=== PATIENT | male | born 1975 | race Caucasian/White ===

== ENCOUNTER 2023-04-16 14:11 | Inpatient (IN) | payer MEDICARE, SELFPAY ==
--- NOTE | ~2023-04-16 | XR_ITS ---
EXAMINATION: XR WRIST, RIGHT CLINICAL INFORMATION: Pain and swelling can right wrist COMPARISON: None available. TECHNIQUE: PA, lateral, and oblique views of the right wrist. FINDINGS: The bones and soft tissues are normal. No fracture. Alignment is anatomic with normal joint spaces. No erosions or abnormal soft tissue calcifications. XR/XR wrist RT min 3V IMPRESSION: Normal right wrist.
[2023-04-16 14:18] VITALS: BP 133/80; BP 162/112; PULSE 74; PULSE 82; RESP 16; TEMP 37.1; O2SAT 96; BMI 33.3
[2023-04-16 14:34] VITALS: RESP 14
[2023-04-16 14:51] LABS: MANUAL DIFF FLAG NO
[2023-04-16 14:54] LABS: Basophils Percent Auto 0.2 % (0-2); Eosinophils Absolute Auto 0.1 X10*3/uL (0.0-0.4); Hematocrit 42.3 % (42.0-52.0); Hemoglobin 13.7 g/dl (14.0-18.0); Imm Gran Abs Auto 0.02 X10*3/uL (0.00-0.03); Imm Gran Pct Auto 0.2 % (0.0-0.4); Mean Corpuscular HGB Conc 32.4 g/dl (31.0-36.0); Mean Corpuscular Hemoglobin 28.9 pg (27.0-33.0); Mean Corpuscular Volume 89.2 fL (80.0-98.0); Mean Platelet Volume 10.1 fL (9.4-12.4); Monocytes Absolute Auto 0.6 X10*3/uL (0.1-1.2); Monocytes Percent Auto 7.5 % (2-11); Neutrophils Absolute Auto 5.6 x10*3/uL (2.0-8.3); Neutrophils Percent Auto 67.1 % (45-73); Platelet Count 209 X10*3/uL (160-400); Red Blood Count 4.74 X10*6/uL (4.60-5.80); Red Cell Distribution Width 13.2 % (11.0-16.0); White Blood Count 8.4 X10*3/uL (4.8-10.8)
[2023-04-16 14:56] LABS: Appearance Urine Clear; Color Urine Yellow; Glucose Urine UA Negative (Negative); Leukocyte Esterase Urine Negative (Negative); Nitrite Urine Negative (Negative); UMIC TRIGGER UACC YES; Urine Blood Negative (Negative); Urine Ketones Negative (Negative); Urine Protein 30 (1+) mg/dL (Neg-Trace)
[2023-04-16 15:01] LABS: Amphetamine Screen Urine Not Detected (Not Detect); Barbiturates, Urine Not Detected (Not Detect); Benzodiazepines Screen Urine Not Detected (Not Detect); Cannabinoid Screen Urine Not Detected (Not Detect); Cocaine Screen Urine Not Detected (Not Detect); Fentanyl, urine Not Detected (Not Detect); Opiate Screen Urine Not Detected (Not Detect); Phencyclidine Screen Urine Not Detected (Not Detect)
[2023-04-16 15:05] LABS: COVID-19 Test Positive (Negative); IDNOW Serial# 08D9AD1C
[2023-04-16 15:09] LABS: Bacteria Urine None Seen (None Seen); Granular Casts Urine Present; RBC Urine 0-2 /HPF (0-2); Squamous Epithelial Cell Urine 0-2 /HPF (0-2); WBC Urine 0-5 /HPF (0-5)
[2023-04-16 15:19] LABS: Alanine Aminotransferase 17 U/L (0-40); Alkaline Phosphatase 68 U/L (39-117); Anion Gap 16 (12-20); Aspartate Amino Transferase 24 U/L (5-37); Bilirubin Total 0.4 mg/dL (0.0-1.0); Blood Urea Nitrogen 10 mg/dL (9-16); Calcium 9.2 mg/dL (8.4-10.2); Carbon Dioxide 25 mmol/L (22-29); Chloride 108 mmol/L (96-108); Creatinine Clr Calc Pharmacy 120.7; Estimated Glomerular Filt Rate > 60; Ethanol < 10 mg/dL; Glucose Random 98 mg/dL (60-115); Potassium 3.7 mmol/L (3.3-5.1); Sodium 145 mmol/L (135-145); Total Protein 7.2 g/dL (6.5-8.0)
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
--- NOTE | 2023-04-16 16:37 | PHA.MEDREC ---
Pharmacy Consult ? Medication Reconciliation Pharmacy has reviewed the medication reconciliation completed by nursing.
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
--- NOTE | 2023-04-16 19:04 | PC.NURSE ---
patient appears to remain at rest at present respirations are even and unlabored patient appears in no distress, requests blankets.
--- NOTE | 2023-04-16 20:33 | PC.NURSE ---
client participates in negative attention seeking behavior when in milieu, speaking in a childlike voice, acting seemingly kendall and victim-like, talking to self in front of door (inside room) for prolonged periods.
[2023-04-16 22:05] VITALS: BP 151/73; PULSE 54; RESP 20; TEMP 36.6; O2SAT 97
--- NOTE | 2023-04-17 00:50 | PC.NURSE ---
patient continues to self dialogue standing inside his room staring out door, some giggling periodically.
[2023-04-17 03:46] VITALS: BP 151/72; PULSE 56; RESP 17; TEMP 36.5; O2SAT 97
--- NOTE | 2023-04-17 08:09 | ECG_ITS ---
Test Reason : CHECK QT INTERVAL Blood Pressure : / mmHG Vent. Rate : 091 BPM Atrial Rate : 091 BPM P-R Int : 132 ms QRS Dur : 096 ms QT Int : 362 ms P-R-T Axes : 053 -09 051 degrees QTc Int : 445 ms Normal sinus rhythm Normal ECG When compared with ECG of 31-JUL-2011 09:43, Vent. rate has increased BY 32 BPM Referred By: Fausto Cam Electronically Signed By:MICHELLE NUNEZ
--- NOTE | 2023-04-17 08:49 | PC.NURSE ---
patient is awake and alert in room, covid + and respecting boundaries with others and masking. patient is calm and cooperative, refused AM medications stating he is 'allergic . patient ate his breakfast entirely. when talking with patient he demonstrates pressured speech. patient is currently standing in front of door which is shut making dancing gestures and hand movements. patient appears to be having internal stimuli and self dialogue. Respirations equal and unlabored, patient skin PWD, has mild flaking of skin around face and hair.
[2023-04-17 09:20] VITALS: BP 156/79; PULSE 70; RESP 20; TEMP 36.8; O2SAT 95
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
--- NOTE | 2023-04-17 10:24 | MHC.CARE ---
CARE Team left VM with [facility] legal for guardianship paperwork
--- NOTE | 2023-04-17 10:57 | MHC.CARE ---
CARE Team spoke with Jane Hammond updated her Pt is currently in the ED and she will send legal paperwork.
--- NOTE | 2023-04-17 12:01 | PC.NURSE ---
patient requesting to speak to staff about how he needs to go upstairs and that being in the pod is cruel and unusual punishment patient states he is cold, was offered warm blanket but denied. patient being intrusive on staff regarding the temperature of the pod, patient educated on how we can not always control the temperature of the unit. patient is sitting in room on bed quietly
--- NOTE | 2023-04-17 12:57 | PC.NURSE ---
REPORT TO SAI ON M3
--- NOTE | 2023-04-17 13:25 | PC.NURSE ---
Patient refused lunch tray, saying he is now vegan/vegetarian. kitchen called and patient is being brought new lunch
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
--- NOTE | 2023-04-17 17:23 | PC.NURSE ---
Pt refused flu vaccine at this time
--- NOTE | 2023-04-17 17:28 | PC.NURSE ---
Pt declined vitals
[2023-04-17] MEDS: risperiDONE 2 MG TABLET PO (22:58)
[2023-04-18 07:00] VITALS: BMI 37.0
[2023-04-18 07:40] VITALS: BP 139/67; PULSE 80; RESP 18; TEMP 36.1; O2SAT 100
[2023-04-18 08:33] LABS: Estimated Average Glucose 94 mg/dL; Hemoglobin A1c % 4.9 % (<6.0)
[2023-04-18 08:53] LABS: Cholesterol 135 mg/dL (<200); HDL Cholesterol 41 mg/dL (>40); LDL Cholesterol Calculated 78 mg/dL (<100); Triglycerides 81 mg/dL (<150)
[2023-04-18] MEDS: risperiDONE 2 MG TABLET PO ×2 (08:57→22:47)
[2023-04-18 09:08] LABS: Free T4 (Free Thyroxine) 0.96 ng/dL (0.71-1.85)
[2023-04-18 09:17] LABS: Vitamin B12 267 pg/mL (200-900)
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
[2023-04-18 20:30] VITALS: BP 123/73; PULSE 69; RESP 18; TEMP 36.3; O2SAT 97
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
[2023-04-19 08:30] VITALS: BP 172/90; PULSE 80; RESP 18; TEMP 36.5; O2SAT 98
[2023-04-19] MEDS: risperiDONE 2 MG TABLET PO ×2 (08:44→20:27)
[2023-04-19] MEDS: hydrOXYzine HCL 25 MG TABLET PO (08:44)
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
--- NOTE | 2023-04-19 13:41 | PC.NURSE ---
pt transferred from and arrived on the unit via wheel chair on a CV @ 1325. Skin check performed and vitals taken. Pt is covid+ and placed in group room b to [facility]. Pt is pleasant, calm,, cooperative utilizing the portable phone.
[2023-04-19 16:30] VITALS: BP 134/74; PULSE 84; TEMP 36.7
[2023-04-20] MEDS: traZODone HCL 50 MG TABLET PO (01:40)
[2023-04-20] MEDS: risperiDONE 2 MG TABLET PO ×2 (08:49→22:01)
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
[2023-04-21] MEDS: Magnesium Hydrox/Alum Hydrox 30 ML ORAL.SUSP PO (05:10)
[2023-04-21 08:25] VITALS: BP 130/62; PULSE 71; RESP 18; TEMP 36.5; O2SAT 97
[2023-04-21] MEDS: risperiDONE 2 MG TABLET PO ×2 (08:39→20:42)
[2023-04-21 17:12] VITALS: BP 135/71; PULSE 92; RESP 16; TEMP 36.6; O2SAT 99
--- NOTE | 2023-04-21 18:27 | HO.PSYCHPN ---
Subjective Subjective Date of Service: 04/21/23 Reason For Visit: Mental health emergency Interim History: Team reports no sleep for pt last night. Pt is in the hallway, interacting with staff and peers, disorganized, talking about his girlfriend cheating on him, making reference to other patients and their feeling impressed with his knowledge base. Discussed plans to move his room tomorrow, long discussion of how he provides self dental care. Tangential with less but intermittent agitation than observed on 04/20. Again discussed Fadi's order and parameters Denies active distress from COVID diagnosis. Medication Compliance: Yes Side effects from medications: No Attending Groups: No Review of Systems Acute medical concerns: No covid+ Medical Review of Systems: unchanged Review of Systems Review of Systems Yes Unobtainable due to mental status Mental Status Exam Mental Status Exam Patient Appearance: Disheveled Patient Orientation: Person and Place Level of Consciousness: Restless and Alert Patient Behavior: Guarded, Fearful and Good Eye Contact Mood Description: Constricted Affect Description: Constricted Patient Cognition Impaired: No Ability to Follow Directions: Fair Speech Pattern: Spontaneous Speech Memory Description: Episodic Impaired Hallucinations: Auditory Delusions: Paranoid Ideation Thought Process: Rumination Thought Content: positive for Circumstantial, positive for Perseveration and positive for Thought Blocking (???) Depressive Symptoms: Increased Irritability and Increased Fatigue Judgement: Poor Diagnostics Vital Signs (24Hr): Vital Signs - 24 hr 04/21/23 08:25 04/21/23 17:12 Temperature 97.7 F 97.9 F Pulse Rate 71 92 Respiratory Rate 18 16 Blood Pressure 130/62 135/71 Pulse Oximetry 97 99 Oxygen Delivery Method Room Air BMI result Body Mass Index 37.0 Labs 04/16/23 14:40 04/16/23 14:40 Imaging Radiology Impressions: ITS Impressions Wrist X-Ray 04/19/23 07:25 IMPRESSION: Normal right wrist. Medications Medications Current Medications Acetaminophen (Acetaminophen 325 Mg Tablet) 650 mg PO Q6H PRN PRN Reason: Headache/Pain Mild Scale (1-3) Al Hydroxide/Mg Hydroxide (Magnesium Hydrox/Alum Hydrox 30 Ml Oral.Susp) 30 ml PO Q6H PRN PRN Reason: Heartburn/Nausea Last Admin: 04/21/23 05:10 Dose: 30 ml Divalproex Sodium (Divalproex Sodium Er 500 Mg Tab.Er.24h) 500 mg PO BEDTIME ARAM Hydroxyzine HCl (Hydroxyzine Hcl 25 Mg Tablet) 25 mg PO Q6H PRN PRN Reason: Anxiety Last Admin: 04/19/23 08:44 Dose: 25 mg Magnesium Hydroxide (Milk Of Magnesia 30 Ml Oral.Susp) 30 ml PO DAILY PRN PRN Reason: Constipation Nicotine Polacrilex (Nicotine Polacrilex 2 Mg Gum) 4 mg BUCCAL Q2H PRN PRN Reason: Nicotine Cravings Risperidone (Risperidone 2 Mg Tablet) 2 mg PO BID ARAM Last Admin: 04/21/23 08:39 Dose: 2 mg Trazodone HCl (Trazodone Hcl 50 Mg Tablet) 50 mg PO BEDTIME MRX1 PRN PRN Reason: Insomnia Last Admin: 04/20/23 01:40 Dose: 50 mg Ziprasidone (Ziprasidone Mesylate 20 Mg Vial) 20 mg IM BID PRN PRN Reason: if refuses PO Risperdal Allergies Allergies Allergy/AdvReac Type Severity Reaction Status Date / Time haloperidol [Haldol] Allergy Intermediate tongue Verified 04/16/23 14:36 swelling Influenza Virus Vaccines Allergy Intermediate Hives Verified 04/16/23 14:42 aripiprazole [Abilify] AdvReac Mild eye rolling Verified 04/16/23 14:36 sertraline [Zoloft] AdvReac Mild eye rolling Verified 04/16/23 14:36 eggs Allergy Intermediate Hives Uncoded 04/16/23 14:44 Assessment & Plan Assessment & Plan (1) Schizophrenia, paranoid type: Status: Acute Code(s): F20.0 - Paranoid schizophrenia Plan restart/continue fadi's order medication of risperidone 4 mg daily, split 2 BID. observe for improvement. T/C ARAUJO. 04/19 continue tx. 04/20- Continue plan of care 04/21/23: Depakote ER 500 mg HS Reason for continued inpatient stay Substantial Risk for: rapid decompensation Time Spent With Patient Time: Total time managing care of this patient today ____ minutes.
--- NOTE | 2023-04-21 21:41 | PC.NURSE ---
PT REFUSED NEWLY ORDERED DEPAKOTE. PT STATED THATS THE MEDICATION OF . I DONT FUCKING TAKE THAT . PT THEN YELLED IN HALLWAY FOR APPROXIMATELY 25 MINUTES ABOUT HOW RETAIL COORDINATOR IS NOT A MEDICAL DOCTOR AND SHOULD NOT BE PRESCRIBING HIS MEDICATIONS.
[2023-04-22 06:00] VITALS: BP 113/61; PULSE 77; RESP 16; TEMP 36.1; O2SAT 97
[2023-04-22] MEDS: risperiDONE 2 MG TABLET PO ×2 (08:57→20:14)
--- NOTE | 2023-04-22 09:49 | P.PNPSI_ITS ---
Subjective Subjective Date of Service: 04/22/23 Reason For Visit: Mental health emergency Interim History: met with patient; discussed with team; reviewed chart initially pt irritated, standing at end of [place], holding up piece of paper saying he was going to [facility]. However he calmed down and was able to talk. Pt explained he was upset saying i had seizures all last night... since he got trazodone combined with Atarax, Pt asked for trazodone to be dc'd; he had refused depakote but said he'd take it if changed to Liquid, to which account underwriter agreed. Pt pleased he could come of covid restrictions. denies covid symptoms Rest of day remained appropriate in [place] Mental Status Exam Mental Status Exam Narrative: Pt is alert and oriented; behavior is odd, guarded, concrete; self-dialoguing, not uncooperative and overall calm; patient is not in distress; dressed in hospital attire with buzzed haircut; mood is described as guarded and affect constricted; eye contact appropriate; Speech is staccato, but normal rate and volume; not pressured; no psychomotor agitation/retardation present; thought process is goal directed; Thought content is on tx and various other undisclosed topics; can discuss pertinent and relevant topics; denies any SI/HI. Internally preoccupied. Patients insight and judgment impaired but improving Diagnostics Vital Signs (24Hr): Vital Signs - 24 hr 04/21/23 17:12 04/22/23 06:00 Temperature 97.9 F 97.0 F Pulse Rate 92 77 Respiratory Rate 16 16 Blood Pressure 135/71 113/61 Pulse Oximetry 99 97 Oxygen Delivery Method Room Air BMI result Body Mass Index 37.0 Labs 04/16/23 14:40 04/16/23 14:40 Imaging Radiology Impressions: ITS Impressions Wrist X-Ray 04/19/23 07:25 IMPRESSION: Normal right wrist. Medications Medications Current Medications Acetaminophen (Acetaminophen 325 Mg Tablet) 650 mg PO Q6H PRN PRN Reason: Headache/Pain Mild Scale (1-3) Al Hydroxide/Mg Hydroxide (Magnesium Hydrox/Alum Hydrox 30 Ml Oral.Susp) 30 ml PO Q6H PRN PRN Reason: Heartburn/Nausea Last Admin: 04/21/23 05:10 Dose: 30 ml Divalproex Sodium (Divalproex Sodium Er 500 Mg Tab.Er.24h) 500 mg PO BEDTIME ARAM Last Admin: 04/21/23 20:48 Dose: Not Given Hydroxyzine HCl (Hydroxyzine Hcl 25 Mg Tablet) 25 mg PO Q6H PRN PRN Reason: Anxiety Last Admin: 04/19/23 08:44 Dose: 25 mg Lorazepam (Lorazepam 1 Mg Tablet) 1 mg PO Q6H PRN PRN Reason: anxiety, agitation Magnesium Hydroxide (Milk Of Magnesia 30 Ml Oral.Susp) 30 ml PO DAILY PRN PRN Reason: Constipation Nicotine Polacrilex (Nicotine Polacrilex 2 Mg Gum) 4 mg BUCCAL Q2H PRN PRN Reason: Nicotine Cravings Risperidone (Risperidone 2 Mg Tablet) 2 mg PO BID ARAM Last Admin: 04/22/23 08:57 Dose: 2 mg Trazodone HCl (Trazodone Hcl 50 Mg Tablet) 50 mg PO BEDTIME MRX1 PRN PRN Reason: Insomnia Last Admin: 04/20/23 01:40 Dose: 50 mg Ziprasidone (Ziprasidone Mesylate 20 Mg Vial) 20 mg IM BID PRN PRN Reason: if refuses PO Risperdal Allergies Allergies Allergy/AdvReac Type Severity Reaction Status Date / Time haloperidol [Haldol] Allergy Intermediate tongue Verified 04/16/23 14:36 swelling Influenza Virus Vaccines Allergy Intermediate Hives Verified 04/16/23 14:42 aripiprazole [Abilify] AdvReac Mild eye rolling Verified 04/16/23 14:36 sertraline [Zoloft] AdvReac Mild eye rolling Verified 04/16/23 14:36 eggs Allergy Intermediate Hives Uncoded 04/16/23 14:44 Assessment & Plan Assessment & Plan (1) Schizophrenia, paranoid type: Status: Acute Code(s): F20.0 - Paranoid schizophrenia Plan Pt is a 47 yo male, with hx of Schizophrenia on [facility] [place] who presents for disorganized speech/behavior. Hospital course; restarted on Risperdal 2mg BID started on depakote 04/22 change depakote to liquid and pt said he'll take it Plan: CV? q15min Continue Risperdal 2mg BID; Court ordered, on Community [place]; give IM Ziprasidone if refuses Depakene (liquid) 500mg qhs gather collateral Patient educated on: diagnosis, medication risk/benefits and medical condition Informed Consent: understands and further education needed Reason for continued inpatient stay Substantial Risk for: med/psych decompensation Time Spent With Patient Time: Total time managing care of this patient today ____ minutes.
[2023-04-22 18:00] VITALS: BP 121/67; PULSE 60; RESP 18; TEMP 36.7; O2SAT 100
[2023-04-23] MEDS: hydrOXYzine HCL 25 MG TABLET PO (01:55)
[2023-04-23 08:01] VITALS: BP 113/63; PULSE 83; RESP 16; TEMP 36.8; O2SAT 98
[2023-04-23] MEDS: risperiDONE 2 MG TABLET PO ×2 (08:20→20:35)
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
[2023-04-23 16:30] VITALS: BP 130/70; PULSE 99; TEMP 36.7
[2023-04-24] MEDS: Benztropine Mesylate 0.5 MG TABLET PO ×3 (01:01→19:01)
[2023-04-24 08:03] VITALS: BP 151/87; PULSE 63; RESP 16; TEMP 36.8; O2SAT 99
[2023-04-24 08:11] VITALS: BP 112/62
[2023-04-24] MEDS: risperiDONE 2 MG TABLET PO ×2 (08:15→20:09)
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
[2023-04-24 16:33] VITALS: BP 118/61; PULSE 72; RESP 18; TEMP 36.7; O2SAT 99
[2023-04-25 07:00] VITALS: BMI 37.8
[2023-04-25 08:00] VITALS: BP 116/66; PULSE 70; RESP 16; TEMP 36.4; O2SAT 98
[2023-04-25] MEDS: risperiDONE 2 MG TABLET PO ×2 (09:50→20:54)
[2023-04-25] MEDS: risperiDONE 1 MG TABLET PO (16:24)
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
[2023-04-25 18:15] VITALS: BP 124/79; PULSE 90; RESP 18; TEMP 36.8; O2SAT 99
[2023-04-26 08:00] VITALS: BP 125/67; PULSE 62; RESP 16; TEMP 36.8; O2SAT 97
[2023-04-26] MEDS: risperiDONE 2 MG TABLET PO ×2 (08:02→19:58)
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
[2023-04-26 17:27] VITALS: BP 135/67; PULSE 54; TEMP 36.9; O2SAT 98
[2023-04-27] MEDS: Benztropine Mesylate 0.5 MG TABLET PO (03:17)
[2023-04-27] MEDS: risperiDONE 2 MG TABLET PO ×2 (08:00→20:02)
[2023-04-27 08:05] VITALS: BP 121/58; PULSE 60; RESP 16; TEMP 36.5; O2SAT 98
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
[2023-04-27] MEDS: risperiDONE 1 MG TABLET PO (11:45)
[2023-04-27 16:10] VITALS: BP 129/64; PULSE 76; RESP 16; TEMP 36.7; O2SAT 99
[2023-04-27] MEDS: hydrOXYzine HCL 25 MG TABLET PO (17:15)
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
[2023-04-28 08:35] VITALS: BP 135/70; PULSE 68; RESP 16; TEMP 36.8; O2SAT 96
[2023-04-28] MEDS: risperiDONE 2 MG TABLET PO ×2 (08:38→20:15)
[2023-04-28 18:00] VITALS: BP 127/65; PULSE 113; TEMP 36.7
[2023-04-29] MEDS: Acetaminophen 325 MG TABLET 650 MG PO (04:03)
[2023-04-29 08:07] VITALS: BP 134/76; PULSE 66; RESP 16; TEMP 36.2; O2SAT 97
[2023-04-29] MEDS: risperiDONE 2 MG TABLET PO ×2 (08:09→20:38)
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
[2023-04-29 19:56] VITALS: BP 121/71; PULSE 101; RESP 16; TEMP 36.7; O2SAT 99
[2023-04-30 08:20] VITALS: BP 125/76; PULSE 78; RESP 18; TEMP 36.2; O2SAT 100
[2023-04-30] MEDS: risperiDONE 2 MG TABLET PO ×2 (08:23→20:23)
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
[2023-04-30 18:38] LABS: Ammonia 25 umol/L (13-55)
[2023-04-30 18:45] LABS: Valproate 15.1 mcg/mL (50.0-100.0)
[2023-04-30 18:49] LABS: Alanine Aminotransferase 12 U/L (0-40); Alkaline Phosphatase 68 U/L (39-117); Aspartate Amino Transferase 17 U/L (5-37); Bilirubin Direct < 0.2 mg/dL (0.0-0.5); Bilirubin Total 0.2 mg/dL (0.0-1.0); Total Protein 7.1 g/dL (6.5-8.0)
[2023-04-30 20:22] VITALS: BP 139/80; PULSE 96; RESP 18; TEMP 36.9; O2SAT 99
[2023-05-01 08:10] VITALS: BP 120/72; PULSE 94; RESP 16; TEMP 36.4; O2SAT 98
[2023-05-01] MEDS: risperiDONE 2 MG TABLET PO ×2 (08:27→20:21)
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
[2023-05-01 18:30] VITALS: BP 126/79; PULSE 100; RESP 16; TEMP 36.6; O2SAT 98
[2023-05-01] MEDS: Benztropine Mesylate 0.5 MG TABLET PO (20:21)
[2023-05-02 07:00] VITALS: BMI 39.1
[2023-05-02 08:10] VITALS: BP 113/65; PULSE 82; RESP 16; TEMP 36.6; O2SAT 98
[2023-05-02] MEDS: risperiDONE 2 MG TABLET PO ×2 (08:28→19:34)
[2023-05-02] MEDS: Benztropine Mesylate 0.5 MG TABLET PO (17:12)
[2023-05-02 17:18] VITALS: BP 124/74; PULSE 89; RESP 18; TEMP 37; O2SAT 98
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
[2023-05-03 08:00] VITALS: BP 108/66; PULSE 89; TEMP 36.3; O2SAT 97
[2023-05-03] MEDS: risperiDONE 2 MG TABLET PO ×2 (08:17→20:47)
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
[2023-05-03 18:00] VITALS: BP 121/80; PULSE 105; RESP 18; TEMP 36.8; O2SAT 97
[2023-05-04] MEDS: Benztropine Mesylate 0.5 MG TABLET PO ×3 (01:39→16:14)
[2023-05-04] MEDS: hydrOXYzine HCL 25 MG TABLET PO (01:39)
[2023-05-04 08:00] VITALS: BP 128/70; PULSE 96; RESP 18; TEMP 36.7; O2SAT 95
[2023-05-04] MEDS: risperiDONE 2 MG TABLET PO ×2 (08:36→19:43)
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
[2023-05-04 16:39] VITALS: BP 123/63; PULSE 110; RESP 18; TEMP 37.2; O2SAT 98
[2023-05-04] MEDS: LORazepam 1 MG TABLET PO (19:28)
--- NOTE | 2023-05-05 04:00 | PC.NURSE ---
Delayed Entry from 05/04/23 During 2100 med pass, patient requested to take 250mg of scheduled depakene. Provider unit receptionist notified.
[2023-05-05] MEDS: Benztropine Mesylate 0.5 MG TABLET PO (06:01)
[2023-05-05 08:00] VITALS: BP 114/62; PULSE 113; RESP 18; TEMP 36.6; O2SAT 100
[2023-05-05] MEDS: risperiDONE 2 MG TABLET PO ×2 (08:22→19:46)
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
[2023-05-05 17:06] VITALS: BP 117/70; PULSE 88; RESP 18; TEMP 36.9; O2SAT 99
[2023-05-06 08:11] VITALS: BP 128/73; PULSE 94; RESP 16; TEMP 37.1; O2SAT 97
[2023-05-06] MEDS: risperiDONE 2 MG TABLET PO ×2 (08:34→20:26)
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
[2023-05-06 17:15] VITALS: BP 161/81; PULSE 111; RESP 18; TEMP 37.1; O2SAT 96
[2023-05-07 08:00] VITALS: BP 122/69; PULSE 93; RESP 16; TEMP 36.7; O2SAT 96
[2023-05-07] MEDS: risperiDONE 2 MG TABLET PO ×2 (09:07→19:30)
[2023-05-07] MEDS: Benztropine Mesylate 0.5 MG TABLET PO (10:43)
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
[2023-05-08 00:45] VITALS: BP 118/69; PULSE 135; RESP 18; TEMP 37.4; O2SAT 95
[2023-05-08 06:00] VITALS: BP 128/66; PULSE 108; RESP 16; O2SAT 97
[2023-05-08] MEDS: risperiDONE 2 MG TABLET PO ×2 (08:38→20:22)
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
[2023-05-08 11:09] LABS: Influenza A PCR NEGATIVE (Negative); Influenza B PCR NEGATIVE (Negative); Resp Syncy Virus RNA Qual PCR NEGATIVE (Negative); SARS COV2 PCR INHOUSE POSITIVE (Negative)
[2023-05-08 22:52] VITALS: BP 104/61; PULSE 101; RESP 18; TEMP 36.3; O2SAT 97
[2023-05-09 07:00] VITALS: BMI 39.7
[2023-05-09 08:42] VITALS: BP 126/68; PULSE 80; RESP 16; TEMP 36.2; O2SAT 100
[2023-05-09] MEDS: risperiDONE 2 MG TABLET PO ×2 (08:51→20:18)
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
[2023-05-09 16:53] VITALS: BP 140/66; PULSE 93; RESP 16; TEMP 36.8; O2SAT 97
[2023-05-10 06:00] VITALS: RESP 18
[2023-05-10] MEDS: risperiDONE 2 MG TABLET PO ×2 (08:11→19:49)
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
[2023-05-10 12:52] VITALS: BP 108/80; PULSE 106; RESP 18; TEMP 37.7; O2SAT 97
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
--- NOTE | 2023-05-10 17:55 | PM.EVENT ---
Event Note Date of Service: 05/10/23 Event Note: Patient seen and evaluated for rash on abdomen and back that patient states has been there for past 2-3 years. Patient worried that he has shingles, though reports rash is not pruritic or painful. Rash as pictured below. Likely tinea versicolor. Will treat with ketoconazole 2% shampoo. Pt should apply to affected area on back and abdomen for 5-minutes daily for 3 consecutive days. It may take several days or weeks before rash fully resolves. Should follow up outpatient to ensure resolution. Time Spent With Patient Time: Total time managing care of this patient today ____ minutes.
[2023-05-10 18:20] VITALS: BP 100/65; PULSE 88; RESP 16; TEMP 37.5; O2SAT 94
[2023-05-11] MEDS: risperiDONE 2 MG TABLET PO (08:30)
[2023-05-11 08:49] VITALS: BP 135/73; PULSE 99; RESP 16; TEMP 36.3; O2SAT 97
== END 2023-05-11 09:50 | DRG 885 ==
LOC: HO.ED 16:56 → HO.PADLT16 04-17 14:30 → HO.PM5 04-19 13:29
PROVIDERS: Registered Nurse; Admitting Provider Psychiatry & Neurology Psychiatry; Emergency Provider Student in an Organized Health Care Education/Training Program; PCP Internal Medicine; Visit Provider Psychiatry & Neurology Psychiatry
DX: F20.0 Paranoid schizophrenia (principal); U07.1 COVID-19; B36.0 Pityriasis versicolor; Z79.899 Other long term (current) drug therapy
CPT/HCPCS: 0241U; 36415; 73110; 80053; 80061; 80076; 80164; 80307; 81001; 82140; 82607; 82746; 83036; 84439; 84443; 85025; 87635; 93005; 99285; J2794

== ENCOUNTER → 2023-04-17 08:09 | Outpatient (BNV) | payer MEDICARE, SELFPAY | PROVIDERS: Admitting Provider Psychiatry & Neurology Psychiatry; Emergency Provider Student in an Organized Health Care Education/Training Program; PCP Internal Medicine; Visit Provider Internal Medicine | DX: I45.89 Other specified conduction disorders (principal) | CPT/HCPCS: 93010 ==

== ENCOUNTER → 2023-04-17 14:20 | Outpatient (BNV) | payer MEDICARE, SELFPAY | PROVIDERS: Admitting Provider Psychiatry & Neurology Psychiatry; Emergency Provider Student in an Organized Health Care Education/Training Program; PCP Internal Medicine; Visit Provider Psychiatry & Neurology Psychiatry | DX: F20.0 Paranoid schizophrenia (principal) | CPT/HCPCS: 90792; 99231; 99232; 99239 ==

== ENCOUNTER 2023-05-16 21:59 | Inpatient (IN) | payer OTHER, SELFPAY ==
[2023-05-16 22:09] VITALS: BP 142/88; BP 147/88; PULSE 93; PULSE 95; RESP 18; TEMP 36.6; O2SAT 20; O2SAT 97; BMI 30.1
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
[2023-05-16 22:45] LABS: MANUAL DIFF FLAG NO
[2023-05-16 22:47] LABS: Basophils Percent Auto 0.1 % (0-2); Eosinophils Percent Auto 0.3 % (0-4); Hematocrit 40.5 % (42.0-52.0); Hemoglobin 13.3 g/dl (14.0-18.0); Imm Gran Abs Auto 0.03 X10*3/uL (0.00-0.03); Imm Gran Pct Auto 0.3 % (0.0-0.4); Lymphocytes Absolute Auto 2.4 X10*3/uL (1.2-4.9); Lymphocytes Percent Auto 23.4 % (20-40); Mean Corpuscular HGB Conc 32.8 g/dl (31.0-36.0); Mean Corpuscular Hemoglobin 28.8 pg (27.0-33.0); Mean Corpuscular Volume 87.7 fL (80.0-98.0); Mean Platelet Volume 10.9 fL (9.4-12.4); Monocytes Percent Auto 9.8 % (2-11); Neutrophils Absolute Auto 6.7 x10*3/uL (2.0-8.3); Neutrophils Percent Auto 66.1 % (45-73); Platelet Count 217 X10*3/uL (160-400); Red Blood Count 4.62 X10*6/uL (4.60-5.80); Red Cell Distribution Width 13.1 % (11.0-16.0); White Blood Count 10.1 X10*3/uL (4.8-10.8)
[2023-05-16 22:56] LABS: Amphetamine Screen Urine Not Detected (Not Detect); Barbiturates, Urine Not Detected (Not Detect); Benzodiazepines Screen Urine Not Detected (Not Detect); Cannabinoid Screen Urine POSITIVE (Not Detect); Cocaine Screen Urine Not Detected (Not Detect); Fentanyl, urine Not Detected (Not Detect); Opiate Screen Urine Not Detected (Not Detect); Phencyclidine Screen Urine Not Detected (Not Detect)
[2023-05-16 23:14] LABS: Acetaminophen LAB < 3 mcg/mL (<30); Alanine Aminotransferase 12 U/L (0-40); Albumin Level 3.9 g/dL (3.5-5.0); Alkaline Phosphatase 68 U/L (39-117); Anion Gap 12 (12-20); Aspartate Amino Transferase 16 U/L (5-37); Bilirubin Total 0.3 mg/dL (0.0-1.0); Blood Urea Nitrogen 16 mg/dL (9-16); Calcium 9.3 mg/dL (8.4-10.2); Carbon Dioxide 29 mmol/L (22-29); Chloride 106 mmol/L (96-108); Creatinine Clr Calc Pharmacy 124.2; Estimated Glomerular Filt Rate > 60; Ethanol < 10 mg/dL; Glucose Random 93 mg/dL (60-115); Potassium 3.8 mmol/L (3.3-5.1); Salicylate < 5.0 mg/dL (15-30); Sodium 143 mmol/L (135-145); Total Protein 7.2 g/dL (6.5-8.0)
[2023-05-17] MEDS: Melatonin 3 MG TABLET PO (00:52)
[2023-05-17 05:15] VITALS: BP 127/71; PULSE 77; RESP 16; TEMP 37.1; O2SAT 95
--- NOTE | 2023-05-17 07:58 | ECG_ITS ---
Test Reason : check prolong QT Blood Pressure : / mmHG Vent. Rate : 048 BPM Atrial Rate : 048 BPM P-R Int : 132 ms QRS Dur : 098 ms QT Int : 458 ms P-R-T Axes : 038 006 025 degrees QTc Int : 409 ms Sinus bradycardia with sinus arrhythmia Otherwise normal ECG When compared with ECG of 17-APR-2023 08:59, Vent. rate has decreased BY 43 BPM Referred By: Olegario Renee Electronically Signed By:Lucian Sommers
[2023-05-17 08:50] LABS: COVID-19 Test Negative (Negative); IDNOW Serial# 08D9AD1C
[2023-05-17 08:52] LABS: Appearance Urine Clear; Color Urine Yellow; Glucose Urine UA Negative (Negative); Leukocyte Esterase Urine Negative (Negative); Nitrite Urine Negative (Negative); Urine Blood Negative (Negative); Urine Ketones Negative (Negative); Urine Protein Negative (Neg-Trace)
[2023-05-17] MEDS: Benztropine Mesylate 0.5 MG TABLET PO (10:17)
[2023-05-17] MEDS: risperiDONE 2 MG TABLET PO ×2 (10:17→20:11)
--- NOTE | 2023-05-17 10:27 | PC.NURSE ---
nurse to nurse given to Clara on M5
[2023-05-17 11:47] VITALS: BP 128/66; PULSE 74; RESP 18; TEMP 36.6; O2SAT 98; BMI 33.0
[2023-05-17 18:00] VITALS: BP 121/67; PULSE 62; RESP 16; TEMP 36.4; O2SAT 98
[2023-05-18 08:15] VITALS: BP 101/54; PULSE 52; RESP 16; TEMP 36.3; O2SAT 98
[2023-05-18] MEDS: risperiDONE 2 MG TABLET PO ×2 (08:56→20:16)
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
[2023-05-18 16:48] VITALS: BP 125/62; PULSE 50; RESP 18; TEMP 36.4; O2SAT 99
[2023-05-18] MEDS: Melatonin 3 MG TABLET PO (20:16)
[2023-05-19 08:11] VITALS: BP 110/54; PULSE 54; RESP 16; TEMP 36.4; O2SAT 96
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
[2023-05-19 17:05] VITALS: BP 128/68; PULSE 66; RESP 18; TEMP 36.3; O2SAT 99
[2023-05-19] MEDS: Melatonin 3 MG TABLET PO (20:57)
[2023-05-20 07:58] VITALS: BP 129/64; PULSE 77; RESP 16; TEMP 36.4; O2SAT 98
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
[2023-05-20 19:40] VITALS: BP 116/58; PULSE 87; TEMP 36.6
[2023-05-20] MEDS: Acetaminophen 325 MG TABLET 650 MG PO (20:01)
[2023-05-21] MEDS: Melatonin 3 MG TABLET PO (00:45)
[2023-05-21 06:00] VITALS: BP 99/55; PULSE 80; RESP 18; TEMP 36.4; O2SAT 97
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
[2023-05-21] MEDS: risperiDONE 2 MG TABLET PO ×2 (11:43→20:12)
[2023-05-21 17:16] VITALS: BP 129/68; PULSE 97; RESP 18; TEMP 36.7; O2SAT 96
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
[2023-05-22 07:40] VITALS: BP 123/72; PULSE 101; RESP 18; TEMP 36.4; O2SAT 95
[2023-05-22] MEDS: risperiDONE 2 MG TABLET PO ×2 (08:23→19:32)
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
[2023-05-22 17:50] VITALS: BP 133/77; PULSE 103; RESP 16; TEMP 37; O2SAT 97
[2023-05-22] MEDS: Benztropine Mesylate 0.5 MG TABLET PO (18:11)
[2023-05-23 07:00] VITALS: BMI 34.2
[2023-05-23] MEDS: risperiDONE 2 MG TABLET PO (08:14)
[2023-05-23 08:25] VITALS: BP 114/56; PULSE 101; RESP 18; TEMP 37; O2SAT 97
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
[2023-05-23 18:00] VITALS: BP 115/70; PULSE 106; RESP 18; TEMP 36.8; O2SAT 94
[2023-05-23] MEDS: risperiDONE 3 MG TABLET PO (20:35)
[2023-05-24 08:00] VITALS: BP 154/67; PULSE 98; RESP 18; TEMP 36.9; O2SAT 96
[2023-05-24] MEDS: risperiDONE 3 MG TABLET PO ×2 (08:14→20:35)
[2023-05-24] MEDS: Benztropine Mesylate 0.5 MG TABLET PO ×2 (08:14→20:35)
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
[2023-05-24 18:00] VITALS: BP 112/66; PULSE 98; RESP 18; TEMP 37.2; O2SAT 97
[2023-05-24 20:23] VITALS: BP 112/66; PULSE 98; RESP 18; TEMP 37.2; O2SAT 97
[2023-05-25 07:30] VITALS: BP 116/61; PULSE 88; RESP 16; TEMP 36.4; O2SAT 98
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
[2023-05-25] MEDS: risperiDONE 3 MG TABLET PO ×2 (08:56→20:29)
[2023-05-25 16:14] VITALS: BP 113/57; PULSE 87; RESP 16; TEMP 36.9; O2SAT 98
[2023-05-25] MEDS: Benztropine Mesylate 0.5 MG TABLET PO (20:29)
--- NOTE | 2023-05-26 00:11 | PC.NURSE ---
Andrea c/o feeling suicidal because he is jealous of another peer. no suicidal actions. patient able to calm without medications. continue Q5 minute safety checks as ordered, monitor for safety, reassure as needed, continue Plan of Care
[2023-05-26 06:00] VITALS: BP 112/59; PULSE 115; RESP 16; TEMP 36.8; O2SAT 97
[2023-05-26] MEDS: risperiDONE 3 MG TABLET PO ×2 (08:01→21:17)
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
[2023-05-27 07:58] VITALS: BP 110/68; PULSE 99; RESP 18; TEMP 36.9; O2SAT 97
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
[2023-05-27] MEDS: risperiDONE 3 MG TABLET PO ×2 (08:22→19:52)
[2023-05-27] MEDS: Mineral Oil/Petrolatum,White 106 GM Tube 1 APPL TOPICAL (08:24)
[2023-05-27 18:00] VITALS: BP 136/77; PULSE 102; RESP 18; TEMP 37.7; O2SAT 96
[2023-05-28 08:14] VITALS: BP 124/73; PULSE 91; RESP 16; TEMP 36.9; O2SAT 97
[2023-05-28] MEDS: risperiDONE 3 MG TABLET PO (09:15)
[2023-05-28] MEDS: Benztropine Mesylate 0.5 MG TABLET PO (15:06)
[2023-05-28] MEDS: Mineral Oil/Petrolatum,White 106 GM Tube 1 APPL TOPICAL (15:38)
[2023-05-28 18:00] VITALS: BP 117/74; PULSE 92; RESP 16; TEMP 36.4; O2SAT 96
[2023-05-28] MEDS: risperiDONE 2 MG TABLET PO (20:40)
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
[2023-05-29 08:15] VITALS: BP 117/61; PULSE 83; RESP 16; TEMP 36.6; O2SAT 96
[2023-05-29] MEDS: risperiDONE 2 MG TABLET PO ×2 (08:38→20:36)
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
[2023-05-29 18:00] VITALS: BP 137/83; PULSE 107; TEMP 36.3
[2023-05-30 07:00] VITALS: BMI 35.6
[2023-05-30 08:17] VITALS: BP 120/69; PULSE 82; RESP 16; TEMP 36.5; O2SAT 96
[2023-05-30] MEDS: risperiDONE 2 MG TABLET PO ×2 (08:37→19:22)
[2023-05-30 16:30] VITALS: BP 110/70; PULSE 109; RESP 18; TEMP 36.7; O2SAT 98
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
[2023-05-31 06:00] VITALS: BP 111/63; PULSE 76; RESP 18; TEMP 37.2; O2SAT 96
[2023-05-31] MEDS: risperiDONE 2 MG TABLET PO ×2 (08:21→21:05)
[2023-05-31] MEDS: Mineral Oil/Petrolatum,White 106 GM Tube 1 APPL TOPICAL (14:16)
[2023-05-31] MEDS: Benztropine Mesylate 0.5 MG TABLET PO (16:55)
[2023-05-31 18:00] VITALS: BP 118/64; PULSE 90; RESP 18; TEMP 36.6; O2SAT 98
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
[2023-06-01 06:00] VITALS: BP 106/62; PULSE 92; RESP 16; TEMP 36.9; O2SAT 97
[2023-06-01] MEDS: risperiDONE 2 MG TABLET PO ×2 (08:23→19:40)
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
[2023-06-02 07:58] VITALS: BP 117/57; PULSE 83; TEMP 36.7; O2SAT 96
[2023-06-02] MEDS: risperiDONE 2 MG TABLET PO ×2 (08:42→20:00)
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
[2023-06-02 17:02] VITALS: BP 121/69; PULSE 100; RESP 16; TEMP 36.8; O2SAT 97
[2023-06-03 06:00] VITALS: RESP 18
[2023-06-03] MEDS: risperiDONE 2 MG TABLET PO ×2 (08:47→20:47)
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
[2023-06-03 20:40] VITALS: BP 108/59; PULSE 106; TEMP 36.9
[2023-06-04 08:49] VITALS: RESP 18
[2023-06-04] MEDS: risperiDONE 2 MG TABLET PO ×2 (08:57→19:43)
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
[2023-06-04 12:20] VITALS: BP 113/66; PULSE 87; RESP 16; TEMP 37.2; O2SAT 96
[2023-06-04 16:15] VITALS: BP 122/68; PULSE 76; TEMP 36.9; O2SAT 97
[2023-06-05] MEDS: risperiDONE 2 MG TABLET PO ×2 (08:57→20:02)
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
[2023-06-05 16:50] VITALS: BP 111/63; PULSE 70; RESP 16; TEMP 36.9; O2SAT 99
[2023-06-06 07:00] VITALS: BMI 35.6
[2023-06-06] MEDS: risperiDONE 2 MG TABLET PO ×2 (08:43→19:41)
[2023-06-06 09:00] VITALS: RESP 18
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
[2023-06-06 19:00] VITALS: BP 122/78; PULSE 80; RESP 18; TEMP 36.8; O2SAT 97
[2023-06-07] MEDS: risperiDONE 2 MG TABLET PO ×2 (08:27→20:18)
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
[2023-06-07 18:00] VITALS: BP 115/59; PULSE 84; RESP 18; TEMP 36.9; O2SAT 98
[2023-06-08 08:14] VITALS: BP 121/58; PULSE 83; RESP 16; TEMP 36.9; O2SAT 95
[2023-06-08] MEDS: risperiDONE 2 MG TABLET PO ×2 (08:49→20:08)
[2023-06-08 16:35] VITALS: BP 112/64; PULSE 82; RESP 16; TEMP 36.8; O2SAT 100
[2023-06-09 08:17] VITALS: BP 109/71; PULSE 97; RESP 16; TEMP 36.6; O2SAT 97
[2023-06-09] MEDS: risperiDONE 2 MG TABLET PO ×2 (08:57→20:18)
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
[2023-06-09 16:06] VITALS: BP 135/73; PULSE 69; RESP 16; TEMP 37; O2SAT 98
[2023-06-10 08:00] VITALS: BP 113/59; PULSE 83; RESP 18; TEMP 36.9; O2SAT 96
[2023-06-10] MEDS: risperiDONE 2 MG TABLET PO ×2 (08:12→20:16)
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
[2023-06-10 17:04] VITALS: BP 121/70; PULSE 90; RESP 16; TEMP 36.9; O2SAT 97
[2023-06-10 19:44] VITALS: BP 121/70; PULSE 90; RESP 20; TEMP 36.9; O2SAT 97
[2023-06-11 07:55] VITALS: BP 112/58; PULSE 67; RESP 16; TEMP 36.8; O2SAT 95
[2023-06-11] MEDS: risperiDONE 2 MG TABLET PO (08:16)
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
[2023-06-11] MEDS: Benztropine Mesylate 0.5 MG TABLET PO (12:38)
== END 2023-06-11 13:10 | disposition home or self-care (01) | DRG 885 ==
LOC: HO.ED 23:31 → HO.PM5 05-17 11:00
PROVIDERS: Emergency Medicine; Physician Assistant; Admitting Provider Psychiatry & Neurology Psychiatry; Emergency Provider Emergency Medicine; PCP Internal Medicine; Visit Provider Psychiatry & Neurology Psychiatry
DX: F20.0 Paranoid schizophrenia (principal); Z59.01 Sheltered homelessness; F17.210 Nicotine dependence, cigarettes, uncomplicated; G47.33 Obstructive sleep apnea (adult) (pediatric); Z20.822 Contact with and (suspected) exposure to COVID-19; Z71.6 Tobacco abuse counseling; Z79.899 Other long term (current) drug therapy
CPT/HCPCS: 36415; 80053; 80143; 80179; 80307; 81003; 85025; 87635; 93005; 99285; S9485

== ENCOUNTER → 2023-05-17 07:58 | Outpatient (BNV) | payer OTHER, SELFPAY | PROVIDERS: Admitting Provider Psychiatry & Neurology Psychiatry; Emergency Provider Emergency Medicine; PCP Internal Medicine; Visit Provider Internal Medicine Cardiovascular Disease | DX: I49.9 Cardiac arrhythmia, unspecified (principal) | CPT/HCPCS: 93010 ==

== ENCOUNTER → 2023-05-17 10:27 | Outpatient (BNV) | payer OTHER, SELFPAY | PROVIDERS: Admitting Provider Psychiatry & Neurology Psychiatry; Emergency Provider Emergency Medicine; PCP Internal Medicine; Visit Provider Psychiatry & Neurology Psychiatry | DX: F20.0 Paranoid schizophrenia (principal); G47.33 Obstructive sleep apnea (adult) (pediatric) | CPT/HCPCS: 99222; 99231; 99232; 99239 ==